=== PATIENT | female | born 1990 | race Caucasian/White ===

== ENCOUNTER 2016-09-10 09:26 | Emergency (ER) | payer BC ==
--- NOTE | 2016-09-10 10:51 | UC ---
Abdominal Pain Female HPI - HPI Summary HPI Summary: both live vaginal births. Last night about 10 minutes after sex developed low abdominal pain in the middle that was "worse than period cramps but not as bad as childbirth." Pt rested and watched a TV show and felt better after about an hour. This morning, 2 hours ago, was on knees getting things from under the bed and she turned and had sudden tearing pain in central abdomen that felt worse than childbirth. Pt got in a hot bath which didn't help, but now pain has abated. No hx of ovarian cysts or pelvic surgery, pt is taking OCPs and reports good adherence. - History of Current Complaint Chief Complaint: UCAbdominalPain Stated Complaint: LOWER ABD PAIN Time Seen by Provider: 09/10/16 10:36 Hx Obtained From: Patient Hx Last Menstrual Period: 08/04/16 ?: No Onset/Duration: Sudden Onset Timing: Constant Severity Initially: Moderate Severity Currently: Moderate Location: Suprapubic Radiates: No Character: Sharp, Tearing Aggravating Factor(s): Movement Alleviating Factor(s): Nothing Associated Signs and Symptoms: Negative: Fever, Urinary Symptoms, Vaginal Bleeding, Nausea Allergies/Adverse Reactions: Allergies Allergy/AdvReac Type Severity Reaction Status Date / Time Sulfa Antibiotics Allergy Hives Verified 04/23/15 10:07 PMH/Surg Hx/FS Hx/Imm Hx Previously Healthy: Yes - Surgical History Surgical History: None - Family History Known Family History: Positive: Other - mother has ovarian cysts - Social History Lives: With Family Alcohol Use: None Substance Use Type: None Smoking Status (MU): Never Smoked Tobacco Have You Smoked in the Last Year: No - Immunization History Most Recent Influenza Vaccination: declines Most Recent Tetanus Shot: 03/31/15 Most Recent Pneumonia Vaccination: n/a Review of Systems Constitutional: Negative Skin: Negative Eyes: Negative ENT: Negative Respiratory: Negative Cardiovascular: Negative Gastrointestinal: Abdominal Pain Genitourinary: Negative Motor: Negative Neurovascular: Negative Musculoskeletal: Negative Neurological: Negative Psychological: Negative All Other Systems Reviewed And Are Negative: Yes Physical Exam Triage Information Reviewed: Yes Appearance: Well-Appearing, No Pain Distress, Obese Vital Signs: Initial Vital Signs Temp 98.6 F 09/10/16 09:31 Pulse 88 09/10/16 09:31 Resp 20 09/10/16 09:31 BP 112/81 09/10/16 09:31 Pulse Ox 100 09/10/16 09:31 Vital Signs Reviewed: Yes Eye Exam: Normal Eyes: Positive: Conjunctiva Clear ENT Exam: Normal ENT: Positive: Normal ENT inspection, Hearing grossly normal, Pharynx normal, TMs normal Dental Exam: Normal Neck exam: Normal Neck: Positive: Supple, Nontender, No Lymphadenopathy Respiratory Exam: Normal Respiratory: Positive: Chest non-tender, Lungs clear, Normal breath sounds, No respiratory distress, No accessory muscle use Cardiovascular Exam: Normal Cardiovascular: Positive: RRR, No Murmur Abdomen Description: Positive: Soft. Negative: Nontender - suprapubic tenderness, CVA Tenderness (R), CVA Tenderness (L) Bowel Sounds: Positive: Present Musculoskeletal Exam: Normal Neurological Exam: Normal Neurological: Positive: Alert Psychological Exam: Normal Skin Exam: Normal Abd Pain Female Course/Dx - Differential Dx/Diagnosis Provider Diagnoses: abdominal pain - Physician Notification/Consults Discussed Care of Patient With: Francoise George Time Discussed With Above Provider: 11:01 Instructed by Provider To: Will See In ED Discharge - Discharge Plan Condition: Stable Disposition: AGAINST MEDICAL ADVICE
[2016-09-10 11:08] VITALS: BP 144/85
== END 2016-09-10 11:07 | disposition left against medical advice (07) ==
LOC: UCEAST 09:26
DX: R10.9 Unspecified abdominal pain (principal)
CPT/HCPCS: 81003; 84702; 99212; G0463

== ENCOUNTER 2016-09-10 11:26 | Emergency (ER) | payer BC, OTHER ==
--- NOTE | 2016-09-10 12:40 | RAD ---
HISTORY: Lower abdominal pain COMPARISONS: May 29, 2012 TECHNIQUE: Multiple transverse and longitudinal ultrasound images were obtained of the pelvis using grayscale, color Doppler, and spectral Doppler imaging using the transabdominal transducer. FINDINGS: UTERUS: The uterus measures 9.5 x 3.9 x 5.1 cm. The uterus is normal in shape, size, contour, and echotexture. ENDOMETRIUM: The endometrial stripe is smooth. The endometrium measures 1.2 cm in thickness. CUL-DE-SAC: There is a small amount of simple fluid within the cul-de-sac. This may be physiologic in a reproductive age female. RIGHT OVARY: The right ovary measures 3.7 x 2.1 x 2.3 cm. Normal arterial and venous waveforms are identifiable within the ovary on spectral Doppler imaging. LEFT OVARY: The left ovary measures 4.8 x 2.3 x 4.5 cm. Normal arterial and venous waveforms are identifiable within the ovary on spectral Doppler imaging. There is an involuting cyst measuring 2.2 x 3 x 0.8 cm. BLADDER: The bladder is not well visualized. IMPRESSION: 1. SMALL AMOUNT OF FLUID WITHIN THE CUL-DE-SAC. THIS MAY BE PHYSIOLOGIC WITHIN A REPRODUCTIVE AGE FEMALE. 2. INVOLUTING CYST OF THE LEFT OVARY MEASURING 3 CM. 3. NO SONOGRAPHIC FEATURES OF TORSION. PLEASE NOTE THAT PARTIAL OR INTERMITTENT TORSION MAY BE SONOGRAPHICALLY NORMAL.
--- NOTE | 2016-09-10 12:41 | ED ---
GI/ HPI - HPI Summary HPI Summary: 26 female sent over from urgent care presents with complaints of lower abdominal pain that began last night around 2130 and last ~ 2 hours and resolved. This morning while cleaning she experienced the same abdominal pain again for approximately 1 hour that resolved and dissipated over the hour on its own. Has not taken any medications. Patient denies urinary symptoms, nausea/ vomiting, fever/chills, and vaginal symptoms/discharge. Denies and reproductive PMHx. FHx is significant for ovarian cysts. She describes the pain to be tearing sharp sudden onset and "worse than child " over her pubic area, lower abdomen. . Is on OCP and takes them regularly. Did have sexual intercourse last night. No other complaints or PMHx at this time. States pain right now is a dull ache. Has not had any medications. Denies concern for STDs. Bowel movements normal LBM an hour ago. - History of Current Complaint Chief Complaint: EDAbdPain Time Seen by Provider: 09/10/16 11:39 Stated Complaint: LOWER ABD PAIN/SENT FROM [facility] Hx Obtained From: Patient Onset/Duration: Started Days Ago - last night, Resolved Timing: Intermittent, Lasting Hours - 1-2 Severity: Severe Current Severity: Mild Pain Intensity: 3 Location of Pain: Suprapubic - without radiation Pain Characteristics: Sharp, Dull, Tearing, Aching Associated Signs and Symptoms: Negative: Dizziness, Nausea, Vomiting, Blood- Streaked Stool, Diarrhea, Fever, Hematuria, Dysuria, Change in Appetite, Flank Pain, Chills, New Sexual Partner, UTI Symptoms Additional Signs & Symptoms: Positive: - 2, Para - 2, Menses Regular. Negative: Vaginal Bleeding, Vaginal Discharge Aggravating Factor(s): Nothing Alleviating Factor(s): Nothing, Rest, Position - Risk Factors GI Bleed Risk Factor(s): Negative Ectopic Risk Factor(s): Negative Ovarian Torsion Risk Factor(s): Reproductive Age - Allergy/Home Medications Allergies/Adverse Reactions: Allergies Allergy/AdvReac Type Severity Reaction Status Date / Time Sulfa Antibiotics Allergy Hives Verified 04/23/15 10:07 PMH/Surg Hx/FS Hx/Imm Hx Endocrine/Hematology History: Denies: Hx Diabetes Cardiovascular History: Denies: Hx Hypertension Respiratory History: Denies: Hx Asthma - Immunization History Date of Tetanus Vaccine: UTD Date of Influenza Vaccine: UTD Immunizations Up to Date: Yes Infectious Disease History: No Infectious Disease History: Denies: Hx Clostridium Difficile, Hx Hepatitis, Hx Human Immunodeficiency Virus (HIV), Hx of Known/Suspected MRSA, Hx Shingles, Hx Tuberculosis, Hx Known/ Suspected VRE, Hx Known/Suspected VRSA, History Other Infectious Disease, Traveled Outside the [place] in Last 30 Days - Family History Known Family History: Positive: Other - mother has ovarian cysts - Social History Alcohol Use: None Substance Use Type: Reports: None Smoking Status (MU): Never Smoked Tobacco Have You Smoked in the Last Year: No Review of Systems Constitutional: Negative Cardiovascular: Negative Respiratory: Negative Positive: Abdominal Pain Genitourinary: Negative Musculoskeletal: Negative Skin: Negative All Other Systems Reviewed And Are Negative: Yes Physical Exam Triage Information Reviewed: Yes Vital Signs On Initial Exam: Initial Vitals Temp Pulse Resp BP Pulse Ox 96.8 F 60 17 124/69 97 09/10/16 11:29 09/10/16 11:29 09/10/16 11:29 09/10/16 11:29 09/10/16 11:29 Vital Signs Reviewed: Yes Appearance: Positive: Well-Appearing, No Pain Distress, Well-Nourished Skin: Positive: Warm, Skin Color Reflects Adequate Perfusion, Dry. Negative: Numb, Soft, Cyanosis @ Head/Face: Positive: Normal Head/Face Inspection Eyes: Positive: Normal, Conjunctiva Clear ENT: Positive: Normal ENT inspection, Hearing grossly normal, Pharynx normal, TMs normal Neck: Positive: Supple, Nontender Respiratory/Lung Sounds: Positive: Clear to Auscultation, Breath Sounds Present. Negative: Rales, Rhonchi, Wheezes Cardiovascular: Positive: Normal, RRR, Pulses are Symmetrical in both Upper and Lower Extremities. Negative: Murmur, Rub Abdomen Description: Positive: No Organomegaly, Soft, Guarding - when palpating suprapubic area, Other: - tender on palpation of suprapubic area. Negative: Bruit, CVA Tenderness (R), CVA Tenderness (L), Distended, McBurney's Point Tenderness, Peritoneal Signs, Pulsatile Mass Bowel Sounds: Positive: Present Pelvic Exam: Positive: external exam normal - per patient, other - deferred by patient as she stated she was not having any vaginal symptoms Musculoskeletal: Positive: Normal, Strength/ROM Intact Neurological: Positive: Normal, Sensory/Motor Intact, Alert, Oriented to Person Place, Time, CN Intact II-III, Reflexes Intact, Normal Gait Psychiatric: Positive: Affect/Mood Appropriate AVPU Assessment: Alert - Debra Coma Scale Coma Scale Total: 15 Diagnostics - Vital Signs Vital Signs Temp Pulse Resp BP Pulse Ox 09/10/16 11:33 96.8 F 60 17 124/69 97 09/10/16 11:29 96.8 F 60 17 124/69 97 - Laboratory Lab Statement: Any lab studies that have been ordered have been reviewed, and results considered in the medical decision making process. - Ultrasound No standard instances Ultrasound Interpretation: Positive (See Comments) - 1. SMALL AMOUNT OF FLUID WITHIN THE CUL-DE-SAC. THIS MAY BE PHYSIOLOGIC WITHIN A REPRODUCTIVE AGE FEMALE. 2. INVOLUTING CYST OF THE LEFT OVARY MEASURING 3 CM. 3. NO SONOGRAPHIC FEATURES OF TORSION. PLEASE NOTE THAT PARTIAL OR INTERMITTENT TORSION MAY BE SONOGRAPHICALLY NORMAL. Ultrasound Interpretation Completed By: Radiologist Re-Evaluation - Re-Evaluation First Eval Re-Evaluation Time: 13:45 Change: Improved - patient's pain was just about gone, had some ibuprofen. is comfortable and updated on plan of action. spoke with Dr sEcudero. ready to be d/ c with follow up and return if symptoms worsen GIGU Course/Dx - Course Course Of Treatment: transvaginal ultrasound obtained along with urinalysis, test and urine STD testing. Negative. Patient deferred pelvic exam at this time is aware of risks however was not having vaginal symptoms or discharge , not highly suspicious for vaginal etiology. Patient was comfortable and in minimal pain. Given ibuprofen for pain management. U/S did not show ovarian torsion at this time however does show an uncomplicated ovarian cyst. Spoke with Dr Blas who stated to send her home with follow up. Patient was educated on worsening signs and symptoms to watch out for and return immediately if occur. Ibuprofen and warm compresses for pain. Follow up with pcp. - Diagnoses Differential Diagnoses - Female: Ovarian Cyst, Ovarian Torsion, , Pelvic Inflammatory Disease, STD, Urinary Tract Infection Provider Diagnoses: Ovarian cyst - Physician Notifications Discussed Care Of Patient With: Dr Blas Time Discussed With Above Provider: 13:45 Instructed by Provider To: Have Pt Call For Appt. Discharge - Discharge Plan Condition: Stable Disposition: HOME Patient Education Materials: Ovarian Cyst (ED) Referrals: No Primary Care Phys,NOPCP [Primary Care Provider] - Vasiliy Blas MD [Medical Doctor] - Additional Instructions: Take ibuprofen for pain as needed, take with food. Also try using warm compresses. Follow up with OBGYN beginning of next week. If symptoms worsen or return or new symptoms develop as we discussed please return to ER immediately.
[2016-09-10] MEDS ORDERED: Ibuprofen TAB* 600 MG PO ONE (13:30)
[2016-09-10 14:17] LABS: UR Preg Kit Lot# 6090065
[2016-09-10 14:18] LABS: Manual Entry Verification AS; UR Preg Internal Control QC Line Present
[2016-09-10 14:25] LABS: Urine Bilirubin Negative (Negative); Urine Glucose Negative (Negative); Urine Nitrite Negative (Negative)
[2016-09-10 14:26] LABS: Urine Bacteria Absent (Absent)
[2016-09-10 14:54] VITALS: BP 126/57
== END 2016-09-10 14:53 | disposition home or self-care (01) ==
LOC: ED 11:26
DX: N83.202 Unspecified ovarian cyst, left side (principal); Z32.02 Encounter for pregnancy test, result negative
CPT/HCPCS: 76856; 81003; 81015; 81025; 87086; 99282; A9270-GY

== ENCOUNTER 2019-06-06 07:25 | Inpatient (IN) | payer BC ==
[2019-06-06] MEDS ORDERED: Lactated Ringers 1000 ML Bag* 1,000 ML IV ONE ×2 (08:41→16:45)
[2019-06-06] MEDS ORDERED: Buffered Lidocaine 1% SYRIN* 1 ML/SYRINGE INTRADERM ONE (08:41)
[2019-06-06] MEDS ORDERED: Penicillin G Potassium IV* 5,000,000 UNITS in NS 0.9% 100 ML* 100 ML IVPB ONE (08:41)
--- NOTE | 2019-06-06 08:48 | HP ---
General Information - Reason for Visit preeclampsia 38 5/7 weeks induction - General Information Maternal Age: 29 Grav: 3 Para: 2 SAB: 0 IEA: 0 Estimated Due Date: 06/15/19 Determined By: Early Ultrasound Maternal Blood Type and Rh: A Positive - Results this Serology/RPR Result: Non-Reactive Rubella Result: Immune HBsAg Result: Negative HIV Result: Negative GBS Culture Result: Positive Past Medical History Delivery History: See Records Pertinent Past Medical History: See Records Pertinent Past Surgical History: See Records Pertinent Family History: See Records - Antepartal Records Antepartal Records: Reviewed, Complicated by: - preeclampsia Review of Systems Constitutional: Comfortable CV Complaint: No Respiratory: Shortness of Breath: No Gastrointestinal: No Nausea/Vomiting Genitourinary: No Dysuria, No Bleeding Musculoskeletal: No Complaint Neurological: No Headache Movement: Normal Exam Allergies/Adverse Reactions: Allergies Sulfa (Sulfonamide Antibiotics) Allergy (Verified 06/03/19 15:15) Hives Vital Signs 06/06/19 08:43 Temperature 97.9 F Pulse Rate 83 Respiratory 22 Rate Blood Pressure 134/90 (mmHg) O2 Sat by Pulse 99 Oximetry - Measurements Height: 5 ft 8 in Weight: 340 lb Weight in lbs: [phone] Body Mass Index (BMI): 51.7 Pre- Weight: 339 lb Weight Gained This : 1 lbs and 0 ozs - Exam Breast: Breast Exam Deferred CVA: No CVA Tenderness Extremities: No Edema Heart: Normal Rhythm/Heart Sounds HEENT: No Significant Findings Lungs: Clear Bilaterally Rectal: Rectal Exam Deferred Reflexes: DTR 2+ Thyroid: No Thyromegaly - Abdominal Exam Abdomen Exam: Non-Tender Targeted Exam Findings Cervical Exam: 1cm Effacement: 80% Station: 0 Presenting Part: Vertex Membrane Status: Intact EFM Findings - External Monitor Findings Baseline Heart Rate: 140 External Monitor Findings: Accelerations Present, No Pattern of Variable or Late Decelerations, Variability Moderate Contractions: None Assessment/Plan - Obstetrical Risk Factors Obstetrical Risk Factors: GBS Positive, PreEclampsia - Plan Plan: Induction, Antibiotic Prophylaxis, Admit - Anticipate Vaginal Delivery
[2019-06-06 08:57] LABS: ABS Basophils 0.1 10^3/ul (0-0.2); ABS Lymphocytes 1.8 10^3/ul (1.0-4.8); ABS Monocytes 0.6 10^3/ul (0-0.8); ABS Neutrophils 5.4 10^3/ul (1.5-7.7); Eosinophil % 0.6 %; Hematocrit 32 % (35-47); Hemoglobin 10.4 g/dL (12.0-16.0); Lymphocyte % 23.4 %; Mean Corpuscular HGB Conc 33 g/dL (31-36); Mean Corpuscular Hemoglobin 25 pg (27-31); Mean Corpuscular Volume 76 fL (80-97); Mean Platelet Volume 9.7 fL (7.4-10.4); Platelet Count 345 10^3/uL (150-450); Red Blood Count 4.17 10^6 /uL (3.70-4.87); Red Cell Distribution Width 14 % (10-15); White Blood Count 7.9 10^3/uL (3.5-10.8)
[2019-06-06] MEDS ORDERED: Oxytocin in LR* 20 UNITS/1,000 ML BAG IVPB ONE (08:57)
[2019-06-06] MEDS ORDERED: Oxytocin in LR* 20 UNITS/1,000 ML BAG IVPB SCH ×2 (09:00→22:00)
[2019-06-06 09:14] LABS: Albumin 2.9 g/dL (3.2-5.2); Albumin/Globulin Ratio 0.9 (1-3); BUN/Creatinine Ratio 13.7 (8-20); Calcium 8.9 mg/dL (8.6-10.3); EGFR African American 115.7 (>60); EGFR Non-African American 95.6 (>60); Globulin 3.4 g/dL (2-4); Potassium 4.3 mmol/L (3.5-5.0); Total Bilirubin 0.2 mg/dL (0.2-1.0); Total Protein 6.3 g/dL (6.4-8.9); Uric Acid 4.8 mg/dL (2.3-6.6); Urine Benzodiazepine Screen None Detected (None Detect); Urine Opiates Screen None Detected (None Detect)
[2019-06-06] MEDS: Penicillin G Potassium IV* 3,000,000 UNITS in NS 0.9% 100 ML* 100 ML IVPB SCH ×2 (14:30→18:28)
[2019-06-06] MEDS ORDERED: OBEPIDURAL* 250 ML EPIDURAL ONE (15:11)
[2019-06-06] MEDS ORDERED: Lidocaine 2% w/ EPI 1:200,000* 20 ML SDV VIAL ONE (15:38)
[2019-06-06] MEDS ORDERED: Famotidine TAB* 20 MG PO PRN (16:45)
[2019-06-06] MEDS ORDERED: Lactated Ringers 1000 ML Bag* 500 ML IV PRN ×2 (16:45)
[2019-06-06] MEDS ORDERED: Sodium Citrate/Citric Acid* 15 ML UDC PO PRN (16:45)
[2019-06-06] MEDS ORDERED: Phenylephrine 40 MCG/ML SYRINGE IV PUSH PRN ×2 (16:45)
[2019-06-06] MEDS ORDERED: Lactated Ringers 1000 ML Bag* 1,000 ML IV SCH ×3 (17:00→22:00)
[2019-06-06] MEDS ORDERED: OBEPIDURAL* 250 ML EPIDURAL SCH (17:00)
[2019-06-06] MEDS: Lactated Ringers 1000 ML Bag* 1,000 ML IV SCH ×2 (19:15→21:06)
[2019-06-06] MEDS ORDERED: Varicella Virus Vaccine Live* 0.5 ML VIAL SUBCUT ONE (21:42)
[2019-06-06] MEDS ORDERED: Glycerin ADULT SUPP PR PRN (21:42)
--- NOTE | 2019-06-06 21:50 | PROCNOTE ---
[facility] OB: Delivery Note - Delivery A Date of : 06/06/19 Time of : 21:30 Sex: Female Score 1 Minute: 9 Score 5 Minutes: 9 Gestational Age in Weeks and Days at Delivery: 38 Weeks and 5 Days Delivery Method: Spontaneous Vaginal Labor: Induced Did Patient attempt ?: N/A, No Previous Amniotic Fluid: Meconium Estimated Blood Loss: 300 Anesthesia/Analgesia: CEI for Labor Delivered By: Chetna Tilley - Nursery Level of Nursery: Regular/Bedside - Perineum Perineal Injury: None/Intact Perineal Repair: None - Events Delivery Events of Note: Pitocin During Labor, Supplemental O2 to Mother, Full Course of Antibiotics - Risk for Falls Other Risk for Falls: BMI 50 - Additional Delivery Notes Additional Delivery Notes: placenta 3VC/ spontaneous/intact indication for induction pre eclampsia
[2019-06-06] MEDS: Ibuprofen TAB* 600 MG PO PRN (23:32)
[2019-06-06] MEDS: Dibucaine 1% 28.35 GM TUBE PR PRN (23:33)
[2019-06-06] MEDS: Witch Hazel PAD* JAR TOPICAL PRN (23:33)
[2019-06-07] MEDS: Acetaminophen TAB* 325 MG PO PRN ×2 (03:54→14:07)
[2019-06-07 07:08] LABS: ABS Basophils 0.1 10^3/ul (0-0.2); ABS Lymphocytes 2.2 10^3/ul (1.0-4.8); ABS Monocytes 0.8 10^3/ul (0-0.8); ABS Neutrophils 8.6 10^3/ul (1.5-7.7); Eosinophil % 0.3 %; Hematocrit 26 % (35-47); Hemoglobin 8.5 g/dL (12.0-16.0); Lymphocyte % 18.9 %; Mean Corpuscular HGB Conc 33 g/dL (31-36); Mean Corpuscular Hemoglobin 25 pg (27-31); Mean Corpuscular Volume 75 fL (80-97); Mean Platelet Volume 9.3 fL (7.4-10.4); Platelet Count 283 10^3/uL (150-450); Red Blood Count 3.42 10^6 /uL (3.70-4.87); Red Cell Distribution Width 14 % (10-15); White Blood Count 11.7 10^3/uL (3.5-10.8)
[2019-06-07] MEDS: Ibuprofen TAB* 600 MG PO PRN ×2 (08:02→14:07)
[2019-06-07] MEDS: Docusate CAP* 100 MG PO SCH ×3 (08:02→20:43)
[2019-06-07] MEDS: Ferrous Gluconate TAB* 324 MG TAB PO SCH ×2 (08:02→20:43)
[2019-06-07] MEDS ORDERED: Simethicone TAB* 80 MG TAB.CHEW PO SCH (08:30)
[2019-06-07 20:28] VITALS: BP 128/68
[2019-06-07] MEDS: Witch Hazel PAD* JAR TOPICAL PRN (20:43)
[2019-06-07] MEDS: Dibucaine 1% 28.35 GM TUBE PR PRN (20:43)
== END 2019-06-07 23:06 | disposition home or self-care (01) | DRG 560 ==
LOC: MCHOBOUT 07:25 → MCHOB 07:49
PROVIDERS: ADMIT Obstetrics & Gynecology; ATTEND Obstetrics & Gynecology
PROC: 10E0XZZ Delivery of Products of Conception, External Approach (ICD-10-PCS; principal; 2019-06-06)
PROC: 3E033VJ Introduction of Other Hormone into Peripheral Vein, Percutaneous Approach (ICD-10-PCS; 2019-06-06)
PROC: 4A1HXCZ Monitoring of Products of Conception, Cardiac Rate, External Approach (ICD-10-PCS; 2019-06-06)
DX: O14.94 Unspecified pre-eclampsia, complicating childbirth (principal); Z37.0 Single live birth; O77.0 Labor and delivery complicated by meconium in amniotic fluid; O99.824 Streptococcus B carrier state complicating childbirth; Z88.2 Allergy status to sulfonamides; Z3A.38 38 weeks gestation of pregnancy
CPT/HCPCS: 36415; 80053; 80307; 84550; 85025; 86850; 86900; 86901; A9270-GY; G0480; J2540